=== PATIENT | female | born 1945 | race Caucasian/White ===

== ENCOUNTER 2022-02-17 17:35 | Emergency (ER) | payer MEDICARE, BC ==
[2022-02-17 19:15] VITALS: PULSE 70
[2022-02-17 19:18] VITALS: BP 115/66
== END 2022-02-17 18:55 | disposition home or self-care (01) ==
LOC: LB.ED 17:35
DX: U07.1 COVID-19 (principal); E78.00 Pure hypercholesterolemia, unspecified; I10 Essential (primary) hypertension; E11.9 Type 2 diabetes mellitus without complications
CPT/HCPCS: 99281; 99283; U0002